=== PATIENT | male | born 2000 | race Caucasian/White ===

== ENCOUNTER 2020-07-25 19:41 | Emergency (ER) | payer SELFPAY ==
[~2020-07-25] VITALS: Ht 172.7 cm; Wt 72.6 kg
[2020-07-25 20:18] VITALS: BP 131/83
[2020-07-25 20:25] VITALS: Ht 172.7 cm; Wt 72.6 kg
== END 2020-07-25 20:35 | disposition other institution (70) ==
LOC: ED 19:41
DX: S00.11XA Contusion of right eyelid and periocular area, initial encounter (principal); S00.83XA Contusion of other part of head, initial encounter; S10.91XA Abrasion of unspecified part of neck, initial encounter; Y04.8XXA Assault by other bodily force, initial encounter; Y93.89 Activity, other specified; Y92.89 Other specified places as the place of occurrence of the external cause; Y99.8 Other external cause status

== ENCOUNTER 2020-07-25 19:41 | Emergency (ER) | payer OTHER | END 2020-07-25 20:35 | disposition other institution (70) | LOC: ED 19:41 | DX: Z02.89 Encounter for other administrative examinations (principal) ==